=== PATIENT | male | born 1985 | race Caucasian/White ===

== ENCOUNTER → 2025-04-05 | Outpatient (CLI) | payer OTHER ==
[2025-04-05 15:36] LABS: ALT/SGPT 37.0 U/L (7.0-40); AST/SGOT 22.0 U/L (<34); CALCIUM LEVEL 9.5 MG/DL (8.5-10.1); CARBON DIOXIDE LEVEL 28.0 MMOL/L (20-31); CHLORIDE LEVEL 106.0 MMOL/L (98-107); CREATININE FOR GFR 1.5 MG/DL (0.70-1.30); GLOMERULAR FILTRATION RATE 59.6 (>60); POTASSIUM SERUM 4.6 MMOL/L (3.5-5.1); SODIUM LEVEL 143.0 MMOL/L (136-145)
[2025-04-06 12:13] LABS: PROTEIN, TOTAL SO 7.0 g/dL (6.1-8.1)
[2025-04-07 13:57] LABS: FREE KAPPA LIGHT CHAINS SERUM 16.1 mg/L (3.3-19.4); FREE LAMBDA LIGHT CHAINS SERUM 17.0 mg/L (5.7-26.3); KAPPA/LAMBDA RATIO SERUM 0.95 (0.26-1.65)
[2025-04-10 07:14] LABS: ALBUMIN SO 4.7 g/dL (3.8-4.8); ALPHA 1 GLOBULINS SO 0.2 g/dL (0.2-0.3); ALPHA 2 GLOBULINS SO 0.5 g/dL (0.5-0.9); BETA 2 GLOBULIN SO 0.3 g/dL (0.2-0.5); BETA GLOBULIN SO 0.4 g/dL (0.4-0.6); GAMMA GLOBULINS SO 0.8 g/dL (0.8-1.7)
== END ==
LOC: M LAB 14:28
PROVIDERS: ATTEND Student in an Organized Health Care Education/Training Program
DX: D64.9 Anemia, unspecified (principal)

== ENCOUNTER → 2025-05-09 | Outpatient (CLI) | payer OTHER | LOC: M RAD 14:10 | PROVIDERS: ATTEND Student in an Organized Health Care Education/Training Program | DX: N17.9 Acute kidney failure, unspecified (principal); D64.9 Anemia, unspecified; N18.9 Chronic kidney disease, unspecified ==